=== PATIENT | female | born 1950 | race Caucasian/White ===

== ENCOUNTER 2018-03-11 09:21 | Outpatient (CLI) | payer OTHER ==
[~2018-03-11 09:21] MED LIST: CIPRO750 MG PO; Colace 100MG PO; NEURONTIN PO; NORCO 5/325 TAB1 TAB PO
== END 2018-03-11 12:05 | disposition home or self-care (01) ==
LOC: MRI 09:21
DX: M50.00 Cervical disc disorder with myelopathy, unspecified cervical region (principal)
CPT/HCPCS: 72141

== ENCOUNTER 2018-08-24 07:00 | Inpatient (IN) | payer OTHER ==
[~2018-08-24] VITALS: Ht 170.2 cm; Wt 78.9 kg
[2018-08-24] MEDS ORDERED: METROPOLOL PO (09:48)
[2018-08-24] MEDS ORDERED: PREDNISONE (09:49)
[2018-08-24] MEDS ORDERED: LYRICA225 MG PO (09:49)
[2018-08-24] MEDS ORDERED: SYNTHAMIN 173000 ML (09:50)
[2018-09-01] MEDS ORDERED: DOCUSATE SODIU100 MG PO (12:04)
[2018-09-01] MEDS ORDERED: PERCOCET 5-3251 EACH PO (12:06)
[2018-09-01] MEDS ORDERED: CLONAZEPAM0.5 MG PO (12:06)
== END 2018-09-01 17:54 | disposition home or self-care (01) | DRG 454 ==
LOC: SURH 08-31 04:55 → O/R 08-31 04:55 → SURH 08-31 07:00
PROVIDERS: ADMIT Orthopaedic Surgery Orthopaedic Surgery of the Spine
PROC: 0RG2071 Fusion of 2 or more Cervical Vertebral Joints with Autologous Tissue Substitute, Posterior Approach, Posterior Column, Open Approach (ICD-10-PCS; 2018-08-31)
PROC: 0RT30ZZ Resection of Cervical Vertebral Disc, Open Approach (ICD-10-PCS; 2018-08-31)
PROC: 07DS3ZZ Extraction of Vertebral Bone Marrow, Percutaneous Approach (ICD-10-PCS; 2018-08-31)
PROC: 0RG20A0 Fusion of 2 or more Cervical Vertebral Joints with Interbody Fusion Device, Anterior Approach, Anterior Column, Open Approach (ICD-10-PCS; principal; 2018-08-31 13:30)
DX: M47.12 Other spondylosis with myelopathy, cervical region (principal); M50.01 Cervical disc disorder with myelopathy, high cervical region; I10 Essential (primary) hypertension

== ENCOUNTER 2022-01-30 12:30 | Inpatient (IN) | payer OTHER ==
[~2022-01-30] VITALS: Ht 170.2 cm; Wt 77.1 kg
[~2022-01-30 12:30] MED LIST changes: +CLONAZEPAM0.5 MG PO; +DOCUSATE SODIU100 MG PO; +LYRICA225 MG PO; +METROPOLOL PO; +PERCOCET 5-3251 EACH PO; +PREDNISONE; +SYNTHAMIN 173000 ML
[2022-01-30] MEDS ORDERED: SYNTHROID50 MCG PO (14:34)
[2022-02-04] MEDS ORDERED: METOPROLOL SUCC25 MG ×2 (13:10→13:12)
[2022-02-04] MEDS ORDERED: GLIMEPIRIDE2 M1 (13:11)
[2022-02-04] MEDS ORDERED: LOPRESSOR25 MG (13:11)
[2022-02-04] MEDS ORDERED: RAYOS5 MG (13:11)
[2022-02-04] MEDS ORDERED: CELECOXIB200 MG (13:11)
[2022-02-04] MEDS ORDERED: ROSUVASTATIN CAL5 MG (13:11)
[2022-02-04] MEDS ORDERED: COLACE100 MG PO (14:09)
[2022-02-04] MEDS ORDERED: MEDROLPACK PO (14:10)
[2022-02-04] MEDS ORDERED: AMOX-CLAV 875-1 EAC1 PO (14:10)
[2022-02-04] MEDS ORDERED: PERCOCET 5-3251 EACH PO (14:10)
[2022-02-04] MEDS ORDERED: NEURONTIN800 MG PO (14:10)
== END 2022-02-06 14:20 | disposition home or self-care (01) | DRG 454 ==
LOC: PED 02-04 08:05 → O/R 02-04 08:05 → SURH 02-04 12:30 → PED 02-04 20:55
PROVIDERS: ADMIT Orthopaedic Surgery Orthopaedic Surgery of the Spine; ATTEND Orthopaedic Surgery Orthopaedic Surgery of the Spine
PROC: 0SG3071 Fusion of Lumbosacral Joint with Autologous Tissue Substitute, Posterior Approach, Posterior Column, Open Approach (ICD-10-PCS; 2022-02-04)
PROC: 01NB0ZZ Release Lumbar Nerve, Open Approach (ICD-10-PCS; 2022-02-04)
PROC: 01NR0ZZ Release Sacral Nerve, Open Approach (ICD-10-PCS; 2022-02-04)
PROC: 0QB30ZZ Excision of Left Pelvic Bone, Open Approach (ICD-10-PCS; 2022-02-04)
PROC: 0ST40ZZ Resection of Lumbosacral Disc, Open Approach (ICD-10-PCS; 2022-02-04)
PROC: 0SP004Z Removal of Internal Fixation Device from Lumbar Vertebral Joint, Open Approach (ICD-10-PCS; 2022-02-04)
PROC: 07DR0ZZ Extraction of Iliac Bone Marrow, Open Approach (ICD-10-PCS; 2022-02-04)
PROC: 0SG30AJ Fusion of Lumbosacral Joint with Interbody Fusion Device, Posterior Approach, Anterior Column, Open Approach (ICD-10-PCS; principal; 2022-02-04 17:30)
DX: M51.17 Intervertebral disc disorders with radiculopathy, lumbosacral region (principal); M96.0 Pseudarthrosis after fusion or arthrodesis; M46.07 Spinal enthesopathy, lumbosacral region; M48.07 Spinal stenosis, lumbosacral region; I11.9 Hypertensive heart disease without heart failure; E11.9 Type 2 diabetes mellitus without complications; I49.9 Cardiac arrhythmia, unspecified; E03.9 Hypothyroidism, unspecified